=== PATIENT | male | born 1970 | race Caucasian/White ===

== ENCOUNTER 2023-02-10 12:45 | Emergency (ER) | payer OTHER, SELFPAY ==
[2023-02-10 13:05] VITALS: BP 159/100; PULSE 90; RESP 18; TEMP 36.6; O2SAT 99; BMI 18.1
--- NOTE | 2023-02-10 13:36 | XR_ITS ---
The [address] [address] Patient Name: JOSE GALARZA MRN: [id number] date: 1970 Sex: M Assigned Patient Location: ER Current Patient Location: ER Accession/Order Number: [id number] Exam Date: 02/10/2023 14:28 Report Date: 02/10/2023 14:51 At the request of: MASOUD CALVO Procedure: XR acute abdomen series EXAMINATION: XR acute abdomen series HISTORY: Abdominal pain , acute right side abdominal pain COMPARISON: No relevant comparison available. FINDINGS: LUNGS: No infiltrate, pneumothorax, or pleural effusion. MEDIASTINUM: No abnormal widening. BOWEL GAS PATTERN: Non-obstructed. FREE AIR: None. CALCIFICATIONS: Clustered calcifications within the right epigastric region; nonspecific but suspected to be within the pancreas. BONES: No fracture or visible bone lesion. OTHER: Negative. XR/XR acute abdomen series IMPRESSION: 1. No acute cardiopulmonary process. 2. Normal bowel gas pattern. No acute findings to account for patient's symptoms. 3. Nonspecific right epigastric region calcifications; I suspect these are within the pancreas and may be sequela of prior pancreatitis. Vascular and biliary are felt less likely. Consider CT abdomen pelvis for further evaluation if clinically indicated. Electronically authenticated by: KALEIGH KIM Date: 02/10/2023 14:51
--- NOTE | 2023-02-10 13:37 | ED.ABDPAIN1 ---
HPI - Abdominal Pain General Chief Complaint: Abdominal Pain Stated Complaint: ABDOMINAL PAIN R SIDE OF BODY Time Seen by Provider: 02/10/23 13:23 Source: patient Mode of arrival: walk-in History of Present Illness HPI narrative: patient is a 52-year-old male with a history of alcoholism and medication noncompliance presents to the emergency department with his significant other for a two week history of pain to the right side of the abdomen diffusely. He states that he has had decreased bowel movements and decreased urination, he used milk of magnesia and a fleets enema yesterday which produced significant bowel movements but he continues to have pain in the right side of the abdomen. He has had no objective fevers, although he states two weeks ago with the beginning of course of his illness he did have a temperature of 101.0 Fahrenheit. He has been taking Tylenol in the last several days for pain to the right side of the abdomen which he points to the right mid abdomen. He has had no previous abdominal surgeries. He has not had any vomiting. He states he has chronic urinary urgency, he has not noted any dysuria or hematuria. Related Data Previous Rx's Medication Instructions Recorded dicyclomine 20 mg tablet 20 mg PO QID PRN abdominal pain 02/10/23 #12 tabs ondansetron 4 mg disintegrating 4 mg PO Q6H PRN nausea and 02/10/23 tablet vomiting #12 tabs pantoprazole 40 mg tablet,delayed 40 mg PO DAILY #7 tabs 02/10/23 release (Protonix) Allergies Allergy/AdvReac Type Severity Reaction Status Date / Time No Known Drug Allergies Allergy Verified 02/10/23 13:09 Review of Systems ROS Constitutional Reports: fever; Denies: chills Ears, nose, mouth, and throat Denies: throat pain or neck pain Cardiovascular Denies: chest pain Respiratory Denies: shortness of breath or cough Gastrointestinal Reports: abdominal pain and constipation; Denies: nausea, vomiting or diarrhea Genitourinary Reports: urinary urgency Musculoskeletal Denies: back pain or neck pain Integumentary/Breast Denies: rash Neurological Denies: headache Exam Narrative Exam Narrative: Gen.: Awake, alert, in no distress Head: Normocephalic, atraumatic ENT: Moist mucous membranes Respiratory: No respiratory distress, lungs clear bilaterally Cardio: Regular rate and rhythm Gastrointestinal: Abdomen is soft, nondistended and no significant tenderness to palpation, no guarding or rebound. No McBurney's point tenderness, negative Small sign Extremities: Moves extremities equally, no injuries noted Psych: Normal mood and affect Neuro: No focal neuro deficit Skin: Warm, dry, intact Constitutional Vital Signs, click to edit/add: Last Vital Signs Temp 97.9 F 02/10/23 13:05 Pulse 70 02/10/23 16:03 Resp 16 02/10/23 16:03 BP 170/100 H 02/10/23 16:03 Pulse Ox 97 02/10/23 16:03 O2 Del Method Room Air 02/10/23 16:03 Course Vital Signs Vital signs: Vital Signs Temperature 97.9 F 02/10/23 13:05 Pulse Rate 90 02/10/23 13:05 Respiratory Rate 18 02/10/23 13:05 Blood Pressure 159/100 H 02/10/23 13:05 Pulse Oximetry 99 02/10/23 13:05 Oxygen Delivery Method Room Air 02/10/23 13:05 Temperature 97.9 F 02/10/23 13:05 Pulse Rate 70 02/10/23 16:03 Respiratory Rate 16 02/10/23 16:03 Blood Pressure 170/100 H 02/10/23 16:03 Pulse Oximetry 97 02/10/23 16:03 Oxygen Delivery Method Room Air 02/10/23 16:03 MDM - Abdominal Pain MDM Narrative Medical decision making narrative: patient was medicated with IV fluids, Protonix, Levsin, Zofran. He was given additional Toradol as he complained of pain after urinating. X-rays show no evidence of acute process and this is reviewed by the radiologist although the patient was noted to have nonspecific calcifications in the epigastrium, his lipase is unremarkable and abdomen is soft and benign on recheck by attending physician. Lab studies show mild hyponatremia, likely secondary to his chronic alcoholism. Patient was reevaluated by attending physician prior discharge and abdomen is soft and nonsurgical. Follow-up with PCP, patient was given a list of primary care providers in the area accepting new patients. Return to the Emergency Room if symptoms change or worsen. Medical Records Attestation: I reviewed the patient's medical records. Lab Data Attestation: I reviewed the patient's lab results. Labs: Lab Results 08/24/23 08/24/23 Range/Units 13:34 15:10 WBC 13.4 H (4.0-11.0) 10^3/uL RBC 4.84 (4.70-6.10) 10^6/uL Hgb 15.7 (14.0-18.0) g/dL Hct 45.1 (42.0-54.0) % MCV 93.2 (80.0-94.0) fL MCH 32.4 (25.9-34.0) pg MCHC 34.8 (29.9-35.2) g/dL RDW 12.6 (11.0-15.0) % Plt Count 752 H (150-450) 10^3/uL MPV 9.3 L (9.5-13.5) fL Neut % (Auto) 75.1 H (43.0-75.0) % Lymph % (Auto) 12.3 L (20.5-60.0) % Miller % (Auto) 7.0 (1.7-12.0) % Eos % (Auto) 4.2 (0.9-7.0) % Baso % (Auto) 0.9 (0.2-2.0) % Neut # (Auto) 10.0 H (1.4-6.5) 10^3/uL Lymph # (Auto) 1.6 (1.2-3.8) 10^3/uL Miller # (Auto) 0.9 H (0.3-0.8) 10^3/uL Eos # (Auto) 0.6 (0.0-0.7) 10^3/uL Baso # (Auto) 0.1 (0.0-0.1) 10^3/uL Abs Immat Gran (auto) 0.07 H (0.00-0.03) 10^3/uL Imm/Tot Granulo (auto) 0.5 (0.0-0.5) % Sodium 130 L (136-145) mmol/L Potassium 3.5 (3.5-5.1) mmol/L Chloride 90 L (98-107) mmol/L Carbon Dioxide 34.4 H (21.0-32.0) mmol/L Anion Gap 9.1 BUN 6.0 L (7.0-18.0) mg/dL Creatinine 0.57 L (0.70-1.30) mg/dL Est GFR ( Amer) >60 (>=60) Est GFR (Non-Af Amer) >60 (>=60) BUN/Creatinine Ratio 10.5 Glucose 123 H (74-106) mg/dL Lactate 1.3 (0.4-2.0) mmol/L Calcium 9.0 (8.5-10.1) mg/dL Total Bilirubin 0.6 (0.2-1.0) mg/dL AST 46 H (15-37) U/L ALT 59 (16-63) U/L Alkaline Phosphatase 113 (46-116) U/L Total Protein 7.8 (6.4-8.2) g/dL Albumin 2.8 L (3.4-5.0) g/dL Globulin 5.0 g/dL Albumin/Globulin Ratio 0.6 Lipase 50.0 L (73.0-393.0) U/L Urine Color Lt. yellow (YELLOW) Urine Clarity Clear (CLEAR) Urine pH 7.5 (5.0-9.0) Ur Specific [place] 1.010 (1.005-1.025) Urine Protein Negative (NEG/TRACE) mg/dL Urine Glucose (UA) Negative (NEGATIVE) mg/dL Urine Ketones Negative (NEGATIVE) mg/dL Urine Occult Blood Negative (NEGATIVE) Urine Nitrite Negative (NEGATIVE) Urine Bilirubin Negative (NEGATIVE) Urine Urobilinogen 0.2 (0.2-1.0) EU/dL Ur Leukocyte Esterase Negative (NEGATIVE) Imaging Data Abdominal x-ray: Attestation: I have reviewed the pertinent imaging results. Radiologist's impression: Procedure: XR acute abdomen series EXAMINATION: XR acute abdomen series HISTORY: Abdominal pain , acute right side abdominal pain COMPARISON: No relevant comparison available. FINDINGS: LUNGS: No infiltrate, pneumothorax, or pleural effusion. MEDIASTINUM: No abnormal widening. BOWEL GAS PATTERN: Non-obstructed. FREE AIR: None. CALCIFICATIONS: Clustered calcifications within the right epigastric region; nonspecific but suspected to be within the pancreas. BONES: No fracture or visible bone lesion. OTHER: Negative. IMPRESSION: 1. No acute cardiopulmonary process. 2. Normal bowel gas pattern. No acute findings to account for patient's symptoms. 3. Nonspecific right epigastric region calcifications; I suspect these are within the pancreas and may be sequela of prior pancreatitis. Vascular and biliary are felt less likely. Consider CT abdomen pelvis for further evaluation if clinically indicated. Electronically authenticated by: KALEIGH KIM Date: 02/10/2023 14:51 Discharge Plan Discharge Chief Complaint: Abdominal Pain Clinical Impression: Abdominal pain Patient Disposition: Home, Self-Care Time of Disposition Decision: 15:43 Condition: Good Mode of Transportation: Private Vehicle Prescriptions / Home Meds: New dicyclomine 20 mg tablet 20 mg PO QID PRN (Reason: abdominal pain) Qty: 12 0RF pantoprazole [Protonix] 40 mg tablet,delayed release (DR/EC) 40 mg PO DAILY Qty: 7 0RF ondansetron 4 mg tablet,disintegrating 4 mg PO Q6H PRN (Reason: nausea and vomiting) Qty: 12 0RF Instructions: Abdominal Pain (ED) Stand Alone Forms: Portal Instructions Referrals: Physician,Non-Staff, MD [Primary Care Provider] - 1 week Discharge Date/Time: 02/10/23 16:04
[2023-02-10 13:53] LABS: Basophils Absolute Auto 0.1 10^3/uL (0.0-0.1); Basophils Percent Auto 0.9 % (0.2-2.0); Eosinophils Absolute Auto 0.6 10^3/uL (0.0-0.7); Eosinophils Percent Auto 4.2 % (0.9-7.0); Hematocrit 45.1 % (42.0-54.0); Hemoglobin 15.7 g/dL (14.0-18.0); Immature Granulocytes Abs Auto 0.07 10^3/uL (0.00-0.03); Immature Granulocytes Pct Auto 0.5 % (0.0-0.5); Lymphocytes Absolute Auto 1.6 10^3/uL (1.2-3.8); Lymphocytes Percent Auto 12.3 % (20.5-60.0); Mean Corpuscular HGB Conc 34.8 g/dL (29.9-35.2); Mean Corpuscular Hemoglobin 32.4 pg (25.9-34.0); Mean Corpuscular Volume 93.2 fL (80.0-94.0); Mean Platelet Volume 9.3 fL (9.5-13.5); Monocytes Absolute Auto 0.9 10^3/uL (0.3-0.8); Neutrophils Percent Auto 75.1 % (43.0-75.0); Platelet Count 752 10^3/uL (150-450); Red Blood Count 4.84 10^6/uL (4.70-6.10); Red Cell Distribution Width 12.6 % (11.0-15.0); White Blood Count 13.4 10^3/uL (4.0-11.0)
[2023-02-10] MEDS: 0.9 % SODIUM CHLORIDE 1,000 ML 999 ML IV (14:01)
[2023-02-10] MEDS: PANTOPRAZOLE SODIUM 40 MG VIAL IV (14:02)
[2023-02-10] MEDS: HYOSCYAMINE SULFATE 0.125 MG TAB.SUBL SL (14:02)
[2023-02-10 14:06] LABS: Alanine Aminotransferase 59 U/L (16-63); Albumin Level 2.8 g/dL (3.4-5.0); Alkaline Phosphatase 113 U/L (46-116); Anion Gap 9.1; Aspartate Amino Transferase 46 U/L (15-37); BUN Creatinine Ratio 10.5; Bilirubin Total 0.6 mg/dL (0.2-1.0); Carbon Dioxide 34.4 mmol/L (21.0-32.0); Chloride 90 mmol/L (98-107); Estimated GFR (African America >60 (>=60); Estimated GFR (Non-African Ame >60 (>=60); Glucose 123 mg/dL (74-106); Potassium 3.5 mmol/L (3.5-5.1); Sodium 130 mmol/L (136-145); Total Protein 7.8 g/dL (6.4-8.2)
[2023-02-10 14:07] LABS: Albumin Globulin Ratio 0.6
[2023-02-10 14:11] LABS: Lactate/Lactic Acid 1.3 mmol/L (0.4-2.0)
[2023-02-10] MEDS: KETOROLAC TROMETHAMINE 30 MG/ML VIAL IVP (15:24)
[2023-02-10 15:25] LABS: Bilirubin Urine NEGATIVE (NEGATIVE); Blood Urine NEGATIVE (NEGATIVE); Clarity Urine CLEAR (CLEAR); Color Urine LT. YELLOW (YELLOW); Glucose Urine UA NEGATIVE (NEGATIVE); Ketones Urine NEGATIVE (NEGATIVE); Leukocyte Esterase Urine NEGATIVE (NEGATIVE); Nitrite Urine NEGATIVE (NEGATIVE); Protein Urine NEGATIVE (NEG/TRACE); Urobilinogen Urine 0.2 EU/dL (0.2-1.0); pH Urine 7.5 (5.0-9.0)
[2023-02-10 15:31] LABS: Urine Microscopic Indicated NO
[2023-02-10 16:03] VITALS: BP 170/100; PULSE 70; RESP 16; O2SAT 97
== END 2023-02-10 16:04 | disposition home or self-care (01) ==
PROVIDERS: Physician Assistant; Emergency Provider Emergency Medicine
DX: R10.9 Unspecified abdominal pain (principal); Z79.899 Other long term (current) drug therapy; F10.20 Alcohol dependence, uncomplicated
CPT/HCPCS: 36415; 74022; 80053; 81003; 83605; 83690; 85025; 96374; 96375; 99285

== ENCOUNTER 2024-09-28 09:55 | Outpatient (OUT) | payer OTHER, SELFPAY ==
--- NOTE | 2024-09-28 10:08 | CT_ITS ---
The [address] [address] Patient Name: JOSE GALARZA MRN: [id number] date: 1970 Sex: M Assigned Patient Location: CT Current Patient Location: CT Accession/Order Number: [id number] Exam Date: 09/28/2024 11:40 Report Date: 09/28/2024 11:45 At the request of: ROCKY TIM DO Procedure: CT chest wo con CT Chest without contrast TECHNIQUE: Axial imaging with 2-D reconstruction. The CT exam was performed using one or more the following dose reduction techniques: Automated exposure control, adjustment of the MA and/or Kv according to patient size, or use of the iterative reconstruction technique. History: Multiple pulmonary nodules subsequent imaging. Current smoker. COMPARISON: 08/25/2023 THYROID: Unremarkable TRACHEA AND BRONCHI: Patent ESOPHAGUS: Unremarkable. HEART: Within normal limits PERICARDIAL EFFUSION: None CORONARY ARTERY CALCIFICATION: Present MEDIASTINUM: No adenopathy. No pneumoperitoneum. No mediastinal hematoma. PULMONARY IVETH: No hilar mass or adenopathy is seen. THORACIC AORTA Unremarkable LUNG NODULE similar small lung nodules measuring up to 4 mm. No enlarging or new lung nodule identified. LUNGS: Emphysema. PLEURAL EFFUSION: None PNEUMOTHORAX: No pneumothorax seen. CHEST WALL: No abnormality AXILLA:Unremarkable BONY STRUCTURES degenerative change old rib fractures. UPPER ABDOMEN: Hepatic steatosis. CT/CT chest wo con IMPRESSION: Stable bilateral lung nodules measuring up to 4 mm. No new or enlarging lung nodule. Emphysematous change. Impression dictated by: Jeffrey Hassan M.D.09/28/2024 11:45 AM Dictation Location: [place] [id number] Electronically authenticated by: [id number] Y Date: 09/28/2024 11:45
== END 2024-09-28 09:56 | disposition home or self-care (01) ==
LOC: CT 09:56
PROVIDERS: Visit Provider Internal Medicine
DX: R91.8 Other nonspecific abnormal finding of lung field (principal); J43.9 Emphysema, unspecified
CPT/HCPCS: 71250